=== PATIENT | female | born 1995 | race American Indian/Alaskan Native ===

== ENCOUNTER 2019-01-26 12:02 | Emergency (ER) | payer SELFPAY ==
[2019-01-26 12:13] VITALS: BP 124/84
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
== END 2019-01-26 13:32 | disposition home or self-care (01) ==
LOC: ED 12:02
DX: S01.111A Laceration without foreign body of right eyelid and periocular area, initial encounter (principal); F17.200 Nicotine dependence, unspecified, uncomplicated; Z88.2 Allergy status to sulfonamides; Z88.0 Allergy status to penicillin; X58.XXXA Exposure to other specified factors, initial encounter; Y93.89 Activity, other specified; Y92.89 Other specified places as the place of occurrence of the external cause; Y99.8 Other external cause status
CPT/HCPCS: 99282

== ENCOUNTER 2019-01-29 17:03 | Emergency (ER) | payer SELFPAY ==
[2019-01-29 18:31] VITALS: BP 105/71
--- NOTE | 2019-01-29 18:41 | Event Note ---
ED Screening Note Date of service: 01/29/19 Time: 18:36 ED Screening Note: 23 y o female presents to ED cc of vaginal pinkish spotting x today LMP: 12/29/18 Pt denies pelv pain,f/n/v/ Pt stated positive preg test at home and wants to find out of she is truly Discussed with pt that this is not a medical emergency and we do not do confirmation in the ED I explained to pt and gave her outside resources such as [facility] pt got upset stating she is going to leave This initial assessment/diagnostic orders/clinical plan/treatment(s) is/are subject to change based on patients health status, clinical progression and re- assessment by fellow clinical providers in the ED. Further treatment and workup at subsequent clinical providers discretion. Patient/guardian urged not to elope from the ED as their condition may be serious if not clinically assessed and managed. Initial orders include: None VSS, pt in no acte distress
== END 2019-01-29 18:45 | disposition left against medical advice (07) ==
LOC: ED 17:03
DX: N93.9 Abnormal uterine and vaginal bleeding, unspecified (principal); Z53.21 Procedure and treatment not carried out due to patient leaving prior to being seen by health care provider

== ENCOUNTER 2019-03-13 10:46 | Emergency (ER) | payer MEDICAID ==
[2019-03-13 12:17] LABS: Bilirubin,Urine NEG (Negative); Blood,Urine NEG (Negative); Color,Urine Yellow (Yellow); Mucus,Urine 3+ /HPF; Protein,Urine <15 mg/dL mg/dL (Negative); Urobilinogen,Urine < 2.0 mg/dL (<2.0)
[2019-03-13 12:19] LABS: HCG Qualitative,Urine Positive (Negative)
[2019-03-13] MEDS ORDERED: METOCLOPRAMIDE 10 MG/2 ML INJ IV ONE (14:31)
[2019-03-13] MEDS ORDERED: SODIUM CHLORIDE 0.9% 1000 ML 1,000 ML IV ONE (14:31)
--- NOTE | 2019-03-13 15:30 | Emergency Department Report ---
ED HPI - General Chief complaint: Abdominal Pain Stated complaint: CHEST PAIN, 6 WEEKS PREGANA Time Seen by Provider: 03/13/19 14:25 Source: patient Mode of arrival: Ambulatory Limitations: No Limitations - History of Present Illness Initial comments: This is a 23-year-old female nontoxic, well nourished in appearance, no acute signs of distress presents to the ED with c/o of nausea and vomiting and pelvic pain 1 month. Patient stated she is about 6 weeks . Stated n/v is food content. Patient describes pelvic pain as cramping and aching with level of 3/10 diffuse. Patient denies chest pain, short of breath, fever, chills, h eadache, stiff neck, numbness or tingling. Patient denies any vaginal bleeding, flank pain or upper abdominal pain. Patient denies any diarrhea or constipation. Patient denies any recent travels. Patient stated allergies to PCN and sulfa. -: month(s) Location: pelvis Radiation: none Severity: mild Severity scale (0 -10): 3 Quality: cramping, aching Consistency: constant Improves with: none Worsens with: none Associated symptoms: nausea/vomiting. denies: vaginal bleeding, vaginal discharge, abdominal pain, dysuria, headache, vision changes, malaise, dysparuenia, rash, seizure, shortness of breath, syncope, weakness Vaginal bleeding: none :: Yes Number of weeks : 6 Pre-faizan care: none - Related Data Previous Rx's Medication Instructions Recorded Last Taken Type Metoclopramide [Reglan] 10 mg PO TID PRN #20 tab 03/13/19 Unknown Rx 21/Iron Fu/Folic Acid 1 each PO DAILY #60 tablet 03/13/19 Unknown Rx [ Complete Caplet] Allergies Allergy/AdvReac Type Severity Reaction Status Date / Time Penicillins AdvReac Unknown Verified 01/26/19 12:05 Sulfa (Sulfonamide AdvReac Vomiting Verified 01/26/19 12:05 Antibiotics) ED Review of Systems ROS: Stated complaint: CHEST PAIN, 6 WEEKS PREGANA Other details as noted in HPI Constitutional: denies: chills, fever Eyes: denies: eye pain, eye discharge, vision change ENT: denies: ear pain, throat pain Respiratory: denies: cough, shortness of breath, wheezing Cardiovascular: denies: chest pain, palpitations Endocrine: no symptoms reported Gastrointestinal: nausea, vomiting, other (pelvic pain). denies: abdominal pain, diarrhea Genitourinary: denies: urgency, dysuria, discharge Musculoskeletal: denies: back pain, joint swelling, arthralgia Skin: denies: rash, lesions Neurological: denies: headache, weakness, paresthesias Psychiatric: denies: anxiety, depression Hematological/Lymphatic: denies: easy bleeding, easy bruising ED Past Medical Hx - Past Medical History Previous Medical History?: Yes - Surgical History Past Surgical History?: Yes Additional Surgical History: FACIAL BONE FX - Social History Smoking Status: Never Smoker Substance Use Type: None - Medications Home Medications: Home Medications Medication Instructions Recorded Confirmed Last Taken Type Metoclopramide [Reglan] 10 mg PO TID PRN #20 tab 03/13/19 Unknown Rx 21/Iron Fu/Folic Acid 1 each PO DAILY #60 tablet 03/13/19 Unknown Rx [ Complete Caplet] ED Physical Exam - General Limitations: No Limitations General appearance: alert, in no apparent distress - Head Head exam: Present: atraumatic, normocephalic - Eye Eye exam: Present: normal appearance - Neck Neck exam: Present: normal inspection, full ROM. Absent: tenderness, me ningismus, lymphadenopathy - Respiratory Respiratory exam: Present: normal lung sounds bilaterally. Absent: respiratory distress, wheezes, rales, rhonchi, stridor, chest wall tenderness, accessory muscle use, decreased breath sounds, prolonged expiratory - Cardiovascular Cardiovascular Exam: Present: regular rate, normal rhythm, normal heart sounds. Absent: tachycardia, irregular rhythm, systolic murmur, diastolic murmur, rubs, gallop - GI/Abdominal GI/Abdominal exam: Present: soft, normal bowel sounds. Absent: distended, tenderness, guarding, rebound, rigid, diminished bowel sounds - Extremities Exam Extremities exam: Present: normal inspection, full ROM - Back Exam Back exam: Present: normal inspection, full ROM. Absent: tenderness, CVA tenderness (R), CVA tenderness (L), muscle spasm, paraspinal tenderness, vertebral tenderness, rash noted - Neurological Exam Neurological exam: Present: alert, oriented X3, normal gait - Psychiatric Psychiatric exam: Present: normal affect, normal mood - Skin Skin exam: Present: warm, dry, intact, normal color. Absent: rash ED Course Vital Signs 03/13/19 11:04 Temperature 98.3 F Pulse Rate 67 Respiratory 18 Rate Blood Pressure 105/63 O2 Sat by Pulse 99 Oximetry - Reevaluation(s) Reevaluation #1: 03/13/19 15:29 Patient is speaking in full sentences with no signs of distress noted. ED Medical Decision Making - Lab Data Result diagrams: 03/13/19 16:13 03/13/19 16:13 - Medical Decision Making This is a 23-year-old female that presents with hyperemesis and pelvic pain during . Patient is stable and was examined by me. There is no abdominal tenderness. Negative signs of symptoms of appendicitis. Labs ob tained. UA obtained. OB ultrasound obtained and dictated by the radiologist. Patient is notified of the report with no questions noted by the patient. Vital signs are stable prior to discharge. Patient received medical treatment in the ED which patient stated symptoms has resovled and subsided. Was instructed note to operate any machinery due to possible drowsiness and stated someone will drive the patient home. A by mouth challenge has been obtained and patient tolerated well with no nausea vomiting. Patient was also instructed to Follow-up with a OBGYN doctor in 3-5 days or if symptoms worsen and continue return to emergency room as soon as possible. At time of discharge, the patient does not seem toxic or ill in appearance. No acute signs of distress noted. Patient agrees to discharge treatment plan of care. No further questions noted by the patient. Critical care attestation.: If time is entered above; I have spent that time in minutes in the direct care of this critically ill patient, excluding procedure time. ED Disposition Clinical Impression: Hyperemesis gravidarum, Pelvic pain during Disposition: DC-01 TO HOME OR SELFCARE Is pt being admited?: No Does the pt Need Aspirin: No Condition: Stable Instructions: (ED), Hyperemesis Gravidarum (ED) Additional Instructions: Follow-up with a OBGYN doctor in 3-5 days or if symptoms worsen and continue return to emergency room as soon as possible. Prescriptions: 21/Iron Fu/Folic Acid [ Complete Caplet] 1 each PO DAILY #60 tablet Metoclopramide [Reglan] 10 mg PO TID PRN #20 tab PRN Reason: Nausea Referrals: PRIMARY CARE, [Primary Care Provider] - 3-5 Days TAB KEITA MD [Staff Physician] - 3-5 Days [facility] [Provider Group] - 3-5 Days Forms: Work/School Release Form(ED)
[2019-03-13 16:40] LABS: Basophils % (Auto) 0.4 % (0.0-1.8); Eosinophils % (Auto) 0.7 % (0.0-4.3); Hematocrit 37.6 % (30.3-42.9); Hemoglobin 12.4 gm/dl (10.1-14.3); Lymphocytes # (Auto) 1.8 K/mm3 (1.2-5.4); Lymphocytes % (Auto) 35.7 % (13.4-35.0); Mean Corpuscular HGB Conc 33 % (30-34); Mean Corpuscular Volume 90 fl (79-97); Monocytes # (Auto) 0.4 K/mm3 (0.0-0.8); Monocytes % (Auto) 8.9 % (0.0-7.3); Platelet Count 319 K/mm3 (140-440); Red Blood Count 4.17 M/mm3 (3.65-5.03); Red Cell Distribution Width 11.9 % (13.2-15.2)
[2019-03-13 17:03] LABS: BUN/Creatinine Ratio 20; Blood Urea Nitrogen 10 mg/dL (7-17); Calcium 9.8 mg/dL (8.4-10.2); Hemolysis Index 5
--- NOTE | 2019-03-13 17:54 | Ultrasound Report ---
ULTRASOUND OBSTETRIC INDICATION / CLINICAL INFORMATION: pelvic pain. TECHNIQUE: Transabdominal and Transvaginal. COMPARISON: None available. FINDINGS: GESTATIONAL SAC: Well-defined oval shape and intrauterine in location. YOLK SAC: No significant abnormality. EMBRYO/FETUS: No significant abnormality. - Partridge-Rump Length = 0.28 cm = 5 weeks, 6 day(s). - Heart Rate, beats per minute (if present) = 106 ADNEXA: Complex left ovarian corpus luteal cyst measuring 2.4 x 2.3 x 2.1 cm. FREE FLUID: None. ADDITIONAL FINDINGS: None. IMPRESSION: 1. Single, living intrauterine with estimated sonographic age of 5 weeks, 6 day(s). 2. 2.6 cm left ovarian corpus luteal cyst. Signer Name: Roque Richard MD Signed: 03/13/2019 5:49 PM Workstation Name: [id number]
--- NOTE | 2019-03-13 17:54 | Ultrasound Report ---
ULTRASOUND OBSTETRIC INDICATION / CLINICAL INFORMATION: pelvic pain. TECHNIQUE: Transabdominal and Transvaginal. COMPARISON: None available. FINDINGS: GESTATIONAL SAC: Well-defined oval shape and intrauterine in location. YOLK SAC: No significant abnormality. EMBRYO/FETUS: No significant abnormality. - Dwight-Rump Length = 0.28 cm = 5 weeks, 6 day(s). - Heart Rate, beats per minute (if present) = 106 ADNEXA: Complex left ovarian corpus luteal cyst measuring 2.4 x 2.3 x 2.1 cm. FREE FLUID: None. ADDITIONAL FINDINGS: None. IMPRESSION: 1. Single, living intrauterine with estimated sonographic age of 5 weeks, 6 day(s). 2. 2.6 cm left ovarian corpus luteal cyst. Signer Name: Roque Richard MD Signed: 03/13/2019 5:49 PM Workstation Name: [id number]
[2019-03-13 18:32] VITALS: BP 104/64
== END 2019-03-13 18:31 | disposition home or self-care (01) ==
LOC: ED 10:46
DX: O21.0 Mild hyperemesis gravidarum (principal); O26.891 Other specified pregnancy related conditions, first trimester; R10.2 Pelvic and perineal pain; Z98.890 Other specified postprocedural states; Z79.899 Other long term (current) drug therapy; Z88.0 Allergy status to penicillin; Z88.2 Allergy status to sulfonamides; Z3A.01 Less than 8 weeks gestation of pregnancy
CPT/HCPCS: 36415; 76801; 76817; 76830; 80048; 81001; 81025; 84702; 85025

== ENCOUNTER 2019-03-16 05:36 | Emergency (ER) | payer MEDICAID ==
[2019-03-16 06:05] VITALS: BP 102/57
[2019-03-16] MEDS ORDERED: ACETAMINOPHEN 325 MG TAB PO ONE (08:43)
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
[2019-03-16 09:07] LABS: Hematocrit 33.4 % (30.3-42.9); Hemoglobin 11.3 gm/dl (10.1-14.3); Mean Corpuscular HGB Conc 34 % (30-34); Mean Corpuscular Volume 89 fl (79-97); Platelet Count 302 K/mm3 (140-440); Red Blood Count 3.75 M/mm3 (3.65-5.03)
[2019-03-16 09:14] LABS: BUN/Creatinine Ratio 20; Blood Urea Nitrogen 8 mg/dL (7-17); Calcium 9.1 mg/dL (8.4-10.2); Hemolysis Index 18
--- NOTE | 2019-03-16 10:07 | Ultrasound Report ---
ULTRASOUND OBSTETRIC INDICATION / CLINICAL INFORMATION: 6 weeks preg spotting. TECHNIQUE: Transvaginal. COMPARISON: OB ultrasound 03/13/2018 FINDINGS: GESTATIONAL SAC: Well-defined oval shape and intrauterine in location. Moderate 2.3 x 1.3 cm perigest ational sac implantation bleed YOLK SAC: No significant abnormality. EMBRYO/FETUS: No significant abnormality. - [place]-Rump Length = 0.46 cm = 6 weeks, 1 day(s). - Heart Rate, beats per minute (if present) = 123 ADNEXA: No significant abnormality. FREE FLUID: None. ADDITIONAL FINDINGS: None. IMPRESSION: 1. Single, living intrauterine with estimated sonographic age of 6 weeks, 1 day(s). 2. Moderate subchorionic hemorrhage/implantation bleed Signer Name: Roque Richard MD Signed: 03/16/2019 10:03 AM Workstation Name: [id number]
== END 2019-03-16 11:02 | disposition home or self-care (01) ==
LOC: ED 05:36
DX: O9A.211 Injury, poisoning and certain other consequences of external causes complicating pregnancy, first trimester (principal); S00.81XA Abrasion of other part of head, initial encounter; Z79.899 Other long term (current) drug therapy; Z88.0 Allergy status to penicillin; Z88.2 Allergy status to sulfonamides; Z3A.01 Less than 8 weeks gestation of pregnancy; Y04.2XXA Assault by strike against or bumped into by another person, initial encounter; Y93.89 Activity, other specified; Y92.89 Other specified places as the place of occurrence of the external cause; Y99.8 Other external cause status
CPT/HCPCS: 36415; 76817; 80048; 84702; 85027

== ENCOUNTER 2019-04-15 19:36 | Emergency (ER) | payer MEDICAID | END 2019-04-15 20:01 | disposition left against medical advice (07) | LOC: ED 19:36 | DX: M79.644 Pain in right finger(s) (principal); Z53.21 Procedure and treatment not carried out due to patient leaving prior to being seen by health care provider ==